=== PATIENT | male | born 1930 | race Caucasian/White ===

== ENCOUNTER 2016-05-02 11:15 | Emergency (ER) | payer OTHER, MEDICARE ==
[~2016-05-02] VITALS: Ht 185.4 cm; Wt 88.9 kg
[~2016-05-02 11:15] MED LIST: ASPIRIN325 M2 PO; COZAAR 50MG TAB50 MG PO; FISH OIL CONC1000 MG PO; FLOMAX(MONOGRA0.4 MG PO; NOVOLOG100 U/ML SC; PROS5 PO; SIMVASTATIN20 MG PO; VICTOZA6 MG/ML SC
--- NOTE | 2016-05-02 11:30 | ED GENERAL ADULT ---
History of Present Illness General Chief Complaint: General Adult Stated Complaint: ?FLU Source: patient Exam Limitations: no limitations Vital Signs & Intake/Output Vital Signs & Intake/Output Vital Signs Date Time Temp Pulse Resp B/P Pulse O2 O2 Flow FiO2 Ox Delivery Rate 05/02 1119 97.9 87 20 155/79 95 Room Air Allergies Coded Allergies: metformin (HIVES 05/02/16) sitagliptin (From JANUVIA) (HIVES 05/02/16) Reconcile Medications Albuterol Sulfate (Proair Hfa) 90 MCG HFA.AER.AD 2 PUF INH Q4-6 PRN PRN sob Aspirin (Aspirin*) 325 MG TABLET 1 TAB PO DAILY HEART HEALTH (Reported) Benzonatate (Tessalon Perle) 100 MG CAPSULE 1 CAP PO TID PRN cough Doxycycline Hyclate 100 MG CAPSULE 1 CAP PO BID pneumonia Exenatide Microspheres (Bydureon Pen) 2 MG/0.65 ML PEN.INJCTR DM (Reported) Finasteride (Propecia) (Unknown Strength) TAB (Unknown Dose) PO DAILY PROSTATE (Reported) Fish Oil (Fish Oil Concentrate) 1,000 MG SGL 1 SGL PO DAILY SUPPLEMENT ( Reported) Liraglutide (Victoza 3-[place]) 6 MG/ML GUSTAVO 1.8 mg SC DAILY DIABETES (Reported) Losartan (Cozaar) (Unknown Strength) TAB (Unknown Dose) PO DAILY BP (Reported ) Mirabegron (Myrbetriq) 25 MG TAB.ER.24H 1 TAB PO DAILY BLADDER (Reported) Simvastatin (Simvastatin*) 40 MG TABLET 1 TAB PO QPM CHOLESTEROL (Reported) Tamsulosin Hydrochloride (Flomax) 0.4 MG CAP 1 CAP PO DAILY PROSTATE ( Reported) Triage Note: PT C/O RUNNY NOSE AND PRODUCTIVE COUGH, FEVER SINCE LAST NIGHT Triage Nurses Notes Reviewed? yes Onset: Gradual Duration: hour(s): (18) Timing: remote history Injury Environment: home Severity: moderate Severity Numbers: 5 No Modifying Factors: none HPI: Patient is an 85-year-old male with history diabetes, hypertension, hyperlipidemia presenting to the emergency department with chief complaint of fevers up to 101, productive cough of green sputum that started last night. He reports he was recently exposed to someone who had positive fluu. Denies body aches. No chest pain or shortness of breath. Nothing seems to make symptoms worse. He reports he took Tylenol earlier this morning which helped with the fever. Denies any nausea vomiting or abdominal pain. No chest pain. Denies any back pain. No numbness or tingling. He did get his flu shot this year. (MICHAEL DUBON) Past History Travel History Traveled to [place] past 21 day No Medical History Any Pertinent Medical History? 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 No (MICHAEL DUBON) Review of Systems Review of Systems Constitutional: Reports: see HPI, fever. Comments Review of systems: See HPI, All other systems negative. Constitutional, no chills weight loss HEENT: No visual changes no sore throat Cardiovascular: No chest pain ,palpitation , orthopnea or ankle swelling Skin, no jaundice no rashes Respiratory: No dyspnea cough sputum or hemoptysis GI: No nausea no vomiting : No dysuria No hematuria Muscle skeletal: no back pain, no neck pain, Neurologic: No numbness no confusion no estrada Psych: No stress anxiety or depression,. Heme/endocrine: No bruising no bleeding no polyuria or polydipsia Immunology: No splenectomy or history of AIDS (MICHAEL DUBON) Physical Exam Physical Exam General Appearance: well developed/nourished, no apparent distress, alert, awake , comfortable Comments: Well-developed well-nourished person in no acute distress HEENT:extraocular motion intact, no nystagmus. Pupils equally round and reactive to light and accommodation. Nose is atraumatic. External auditory canal and Tympanic membranes clear. Pharynx normal. No swelling or edema. Neck: Supple, no lymphadenopathy, normal range of motion without pain or tenderness Back: Nontender Cardiovascular: Regular rate and rhythms no murmurs rubs or gallops, normal JVP Respiratory: Chest nontender. No respiratory distress.breath sounds diminished to auscultation bilaterally Extremity: No edema Neuro: Alert oriented x3, motor sensory normal, cranial nerves II through XII grossly intact. Skin: No appreciable rash on exposed skin, skin is warm and dry. Psych: Mood and affect is normal, memory and judgment is normal. Core Measures ACS in differential dx? No CVA/TIA Diagnosis: No Severe Sepsis Present: No Septic Shock Present: No (KACEY TERAN,MICHAEL) Progress Differential Diagnoses I considered the following diagnoses in my evaluation of the patient: Pneumonia , bronchitis, influenza, viral syndrome, upper respiratory infection, sinusitis Diagnostic Imaging: Viewed by Me: Radiology Read. Discussed w/RAD: Radiology Read. Radiology Impression: PATIENT: LUKE MOSELEY PRESENT AGE: 85 PATIENT ACCOUNT NO: [id number] : 30 LOCATION: [facility] ORDERING PHYSICIAN: MICHAEL TERAN SERVICE DATE: 05/02/16 EXAM TYPE: RAD - XRY-CHEST XRAY, PA AND LATERAL EXAMINATION: XR CHEST CLINICAL INFORMATION: 85-year-old man with cough and fever. COMPARISON: 04/23/2015 chest radiograph TECHNIQUE: 2 views of the chest were obtained. FINDINGS: Patchy airspace opacity at the left lung base is new and most consistent with acute lingular pneumonia. The right lung is probably clear. Heart size is within the range of normal. There are no pleural effusions. IMPRESSION: Patchy new airspace opacity at the left lung base is most consistent with acute pneumonia. Initial ED EKG: none Comments: 05/02/2016 12:22:54 PM on arrival patient no acute distress vitals within normal range. Ambulatory oxygen saturation remains between 94 and 95. No shortness of breath. Patient does have left lower lobe consolidation consistent with pneumonia. Patient is afebrile at this time. Patient is well-appearing, we will trial outpatient treatment. He will follow up with a primary care physician tomorrow. Discussed with Dr. Larry who agrees with plan. All questions answered, family is compliant and understands. (KACEY TERAN,MICHAEL) Plan of Care: Orders Procedure Date/time Status RAPID VIRAL INFLUENZA A 05/02 1128 Complete Departure Departure Time of Disposition: 1208 Disposition: HOME OR SELF CARE Condition: Stable Clinical Impression Primary Impression: Pneumonia Qualifiers: Pneumonia type: due to unspecified organism Laterality: left Lung location: lower lobe of lung Qualified Code: J18.1 - Lobar pneumonia, unspecified organism Referrals: AMARILIS OCASIO MD (PCP/Family) Additional Instructions: Follow-up with your primary care physician tomorrow call to make an appointment. Take antibiotics as prescribed. Use inhaler as directed. Tessalon Perles as prescribed for cough. Return for worsening symptoms or concerns. Departure Forms: Customer Survey General Discharge Information Prescriptions: Current Visit Scripts Doxycycline Hyclate 1 CAP PO BID #20 CAP Benzonatate (Tessalon Perle) 1 CAP PO TID PRN cough #30 CAP Albuterol Sulfate (Proair Hfa) 2 PUF INH Q4-6 PRN PRN sob #1 INHAL (MICHAEL DUBON) PA/CONDITIONING YARD SUPERVISOR Co-Sign Statement Statement: ED Attending supervision documentation- [x] I saw and evaluated the patient. I have also reviewed all the pertinent lab results and diagnostic results. I agree with the findings and the plan of care as documented in the PA's/CONDITIONING YARD SUPERVISOR's documentation. [x] I have reviewed the ED Record and agree with the PA's/CONDITIONING YARD SUPERVISOR's documentation. [] Additions or exceptions (if any) to the PAs/CONDITIONING YARD SUPERVISOR's note and plan are summarized below: [] (GINO GARCIA,ART) Critical Care Note Critical Care Note Critical Care Time: non-applicable (MICHAEL DUBON)
--- NOTE | 2016-05-02 11:55 | RADIOLOGY REPORT ---
EXAMINATION: XR CHEST CLINICAL INFORMATION: 85-year-old man with cough and fever. COMPARISON: 04/23/2015 chest radiograph TECHNIQUE: 2 views of the chest were obtained. FINDINGS: Patchy airspace opacity at the left lung base is new and most consistent with acute lingular pneumonia. The right lung is probably clear. Heart size is within the range of normal. There are no pleural effusions. IMPRESSION: Patchy new airspace opacity at the left lung base is most consistent with acute pneumonia.
[2016-05-02] MEDS ORDERED: TESSALON PERLE100 M1 PO (12:13)
[2016-05-02] MEDS ORDERED: DOXYCYCLINE HY100 M2 PO (12:13)
[2016-05-02] MEDS ORDERED: PROAIR HFA8.5 GM INH (12:13)
[2016-05-02] MEDS ORDERED: SIMVASTATIN40 M1 PO (12:15)
[2016-05-02] MEDS ORDERED: MYRBETRIQ25 M1 PO (12:15)
[2016-05-02] MEDS ORDERED: BYDUREON P2 MG/0.65 (12:15)
[2016-05-02 12:43] VITALS: BP 146/67
== END 2016-05-02 12:43 ==
LOC: ERH 11:15
DX: J18.9 Pneumonia, unspecified organism (principal); Z87.891 Personal history of nicotine dependence
CPT/HCPCS: 87804; 87804-59